=== PATIENT | male | born 1970 | race African-American/Black ===

== ENCOUNTER 2016-03-28 23:54 | Emergency (ER) | payer MEDICAID ==
[2016-03-29 00:13] VITALS: BP 160/117
[2016-03-29] MEDS ORDERED: ACETAMINOPHEN SOLN 325 MG/10.15 ML UDCUP PO ONE (00:28)
== END 2016-03-29 01:30 | disposition left against medical advice (07) ==
LOC: ER 23:54
DX: Z53.21 Procedure and treatment not carried out due to patient leaving prior to being seen by health care provider (principal)

== ENCOUNTER 2016-04-09 10:34 | Emergency (ER) | payer MEDICAID ==
[2016-04-09 11:01] VITALS: BP 166/113
--- NOTE | 2016-04-09 11:05 | ER Document Report ---
ED Medical Screen (RME) - General Stated Complaint: CHEST PAIN Time seen by provider: 11:01 Mode of Arrival: Ambulatory Information source: Patient Notes: 35-year-old male presents to ED for chest pain left lateral chest states "sometimes I can't breathe good "states pain does not radiate anywhere. States it hurts to breathe if he moves in the wrong direction. States she hasn't done any strenuous exercise recently he just woke up feeling this way. Denies any cardiac problems. Denies any family heart problems. Blood pressure elevated in RME but he states he has not had his blood pressure medicine this morning. States he does not remember what his blood pressure medicine this; states she started with red eye with drainage matted in the morning about 3 days ago states his eye itches. I have greeted and performed a rapid initial assessment of this patient. A comprehensive ED assessment and evaluation of the patient, analysis of test results and completion of medical decision making process will be conducted by an additional ED providers. TRAVEL OUTSIDE OF THE [place] IN LAST 30 DAYS: No - Related Data Allergies/Adverse Reactions: No Known Allergies Allergy (Verified 04/09/16 11:01) Past Medical History Renal/ Medical History: Denies: Hx Peritoneal Dialysis Physical Exam - Vital signs Vitals: Temp Pulse Resp BP Pulse Ox 98.1 F 62 16 166/113 H 96 04/09/16 11:00 04/09/16 11:00 04/09/16 11:00 04/09/16 11:00 04/09/16 11:00 Course - Vital Signs Vital signs: Temp Pulse Resp BP Pulse Ox 98.1 F 62 16 166/113 H 96 04/09/16 11:00 04/09/16 11:00 04/09/16 11:00 04/09/16 11:00 04/09/16 11:00
[2016-04-09] MEDS ORDERED: ASPIRIN 81 MG TABLET, CHEWABLE PO ONE (11:06)
[2016-04-09 11:38] LABS: ABSOLUTE EOSINOPHILS # (AUTO) 0.1 10^3/uL (0.0-0.6); ABSOLUTE LYMPHOCYTES (AUTO) 1.6 10^3/uL (0.5-4.7); ABSOLUTE MONOCYTES (AUTO) 0.5 10^3/uL (0.1-1.4); ABSOLUTE NEUT (AUTO) 1.2 10^3/uL (1.7-8.2); BASOPHILS % (AUTO) 0.6 % (0-2); EOSINOPHILS % (AUTO) 2.5 % (0-6); HEMATOCRIT 46.4 % (37.9-51.0); HEMOGLOBIN 15.8 g/dL (13.5-17.0); MEAN CORPUSCULAR HEMOGLOBIN 31.3 pg (27.0-33.4); MEAN CORPUSCULAR VOLUME 92 fl (80-97); MONOCYTES % (AUTO) 13.7 % (3-13); RED BLOOD COUNT 5.05 10^6/uL (4.35-5.55); RED CELL DISTRIBUTION WIDTH 13.5 % (11.5-14.0); SEGMENTED NEUTROPHILS % (AUTO) 35.2 % (42-78); WHITE BLOOD COUNT 3.3 10^3/uL (4.0-10.5)
[2016-04-09 11:40] LABS: PARTIAL THROMBOPLASTIN TIME 30.3 SEC (23.5-35.8)
[2016-04-09 11:58] LABS: ALANINE AMINOTRANSFERASE 37 U/L (21-72); ALBUMIN 4.6 g/dL (3.5-5.0); ALKALINE PHOSPHATASE 80 U/L (38-126); ANION GAP 7 (5-19); ASPARTATE AMINO TRANSFERASE 21 U/L (17-59); BILIRUBIN,TOTAL 0.9 mg/dL (0.2-1.3); BLOOD UREA NITROGEN 13 mg/dL (7-20); CARBON DIOXIDE 32 mmol/L (22-30); CHLORIDE 102 mmol/L (98-107); CREATINE KINASE 56 U/L (55-170); GLUCOSE 110 mg/dL (75-110); POTASSIUM 4.7 mmol/L (3.6-5.0); SODIUM 140.8 mmol/L (137-145); TOTAL PROTEIN 7.4 g/dL (6.3-8.2)
[2016-04-09 12:10] LABS: CREATINE KINASE MB 0.28 ng/mL (<4.55)
[2016-04-09 12:15] LABS: TROPONIN I < 0.012 ng/mL
--- NOTE | 2016-04-09 12:36 | ER Document Report ---
ED General - General Chief Complaint: Chest Pain > 30 Stated Complaint: CHEST PAIN Time seen by provider: 11:50 Mode of Arrival: Ambulatory Information source: Patient Notes: 45-year-old male states he woke up this morning with sharp pain just posterior and below the left axilla which is worse with movement or deep breathing. He doesn't recall any injury or exertion such as heavy lifting recently. He reports a prior history of symptoms like this. He reports no associated symptoms such as shortness breath, diaphoresis, nausea, or vomiting. He has no sensation of chest pressure or tightness. He reports the pain is nonradiating. He denies hematemesis, hematochezia, melena, abdominal pain, back pain, or dysuria. He denies pain numbness weakness to extremities. Patient also claims about a 3 day history of redness and yellow discharge from his left eye. He denies any trauma foreign body sensation or exposure to ultraviolet light. He reports there is no pain associated with this. Physical Exam: General: Alert, appears well. HEENT: Normocephalic. Atraumatic. PERRLA. Extraocular movements intact. Discs sharp no papilledema. Market conjunctival injection present in the left globe. There is no hyphema. Ocular pressures 20. No foreign body seen with lid eversion. Patient has mild soft tissue swelling to the upper and lower lids but no hordeolum is present. No abrasion identified with fluorescein staining. Oropharynx clear. Neck: Supple. Non-tender. No JVD Respiratory: No respiratory distress. Clear and equal breath sounds bilaterally. Tender to palpatio at the left midaxillary posterior axillary line over ribs 45 and 6 on the left. Palpation isolates in reproduces patient's pain. No lesions noted in this area. No crepitance or fluctuance is palpated Cardiovascular: Regular rate and rhythm. Abdominal: Normal Inspection. Soft, non-tender. No distension. Normal Bowel Sounds. Back: Non-tender. No deformity or step off. Extremities: Moves all four extremities. Upper extremities: Normal inspection. Non-tender. Normal color. Normal ROM. Normal temperature. Lower extremities: Normal inspection. Non-tender. No edema. Normal color. Normal ROM. Normal temperature. Neurological: Speech clear mentation normal program development specialist strength 5 out of 5 equal both upper extremities motor function 5 out of 5 equal both lower extremities Psychological: Normal affect. Normal Mood. Skin: Warm. Dry. Normal color. TRAVEL OUTSIDE OF THE [place] IN LAST 30 DAYS: No - Related Data Allergies/Adverse Reactions: No Known Allergies Allergy (Verified 04/09/16 11:01) Past Medical History - General Information source: Patient - Social History Smoking Status: Never Smoker Family History: Hypertension Patient has suicidal ideation: No Patient has homicidal ideation: No - Past Medical History Cardiac Medical History: Reports: Hx Hypertension Renal/ Medical History: Denies: Hx Peritoneal Dialysis Review of Systems - Review of Systems Constitutional: denies: Chills, Fever EENT: denies: Ear pain, Throat pain Cardiovascular: See HPI Respiratory: denies: Cough, Short of breath Gastrointestinal: denies: Abdominal pain, Diarrhea, Nausea, Vomiting Genitourinary: denies: Burning, Dysuria Musculoskeletal: See HPI. denies: Back pain Skin: denies: Rash Hematologic/Lymphatic: denies: Swollen glands Neurological/Psychological: denies: Weakness, Numbness Physical Exam - Vital signs Vitals: Temp Pulse Resp BP Pulse Ox 98.1 F 62 16 166/113 H 96 04/09/16 11:00 04/09/16 11:00 04/09/16 11:00 04/09/16 11:00 04/09/16 11:00 - HEENT Visual acuity- Right eye: 20/13 Visual acuity- Left eye: 20/15 Visual acuity- Both eyes: 20/25 Corrective lenses worn: No Course - Re-evaluation Re-evalutation: 04/09/16 12:37 #1 patient has examination left eye consistent with conjunctivitis and will be prescribed TobraDex eyedrops with ophthalmology follow-up Patient's chest pain is most consistent with pleuritic or chest wall discomfort. He has a heart score of 2 and will be prescribed a muscle relaxer and instructed use Tylenol or Motrin for pain. Follow with his physician at [facility] next week - Vital Signs Vital signs: Temp Pulse Resp BP Pulse Ox 98.1 F 62 16 166/113 H 96 04/09/16 11:00 04/09/16 11:00 04/09/16 11:00 04/09/16 11:00 04/09/16 11:00 - Laboratory Result Diagrams: 04/09/16 11:10 02/14/17 11:10 Laboratory results interpreted by me: 04/09/16 04/09/16 11:10 11:10 WBC 3.3 L Seg Neutrophils % 35.2 L Lymphocytes % 48.0 H Monocytes % 13.7 H Absolute Neutrophils 1.2 L Carbon Dioxide 32 H - Diagnostic Test Radiology reviewed: Image reviewed, Reports reviewed - EKG Interpretation by Me Additional EKG results interpreted by me: 04/09/16 12:36 EKG reviewed by myself, shows sinus rhythm at 60 no acute changes 04/09/16 13:16 Repeat EKG shows sinus rhythm at 63 again with no acute changes and no change from initial EKG Discharge - Discharge Clinical Impression: Conjunctivitis, left eye Qualifiers: Conjunctivitis type: acute Acute conjunctivitis type: unspecified Qualified Code(s): H10.32 - Unspecified acute conjunctivitis, left eye Chest pain Qualifiers: Chest pain type: other chest pain Qualified Code(s): R07.89 - Other chest pain ; R07.8 - Other chest pain Condition: Stable Disposition: HOME, SELF-CARE Additional Instructions: Chest Wall Pain Your chest pain has been diagnosed as coming from the chest wall. This is often caused by straining the muscles or joints in the chest during physical activity, direct trauma, coughing, or vigorous vomiting. Persons with arthritis are especially prone to this type of pain, due to inflammation of the cartilage joints near the breast bone. Occasionally, no cause can be found. Rest from strenuous physical activity. This kind of chest pain is usually made worse by movement of the chest. Depending on the symptoms, we may prescribe medicine for pain, muscle relaxation, and antiinflammatory effects. If the pain is new, and seems to be due to muscle strain, cold packs can help. Otherwise, apply gentle warmth to the painful area for 15 minutes every hour or two. You should contact the doctor immediately if things change. Further evaluation is needed if you develop a fever or cough, if the nature of the pain changes, or if you become short of breath.Conjunctivitis You have an infection in your eye, commonly known as "pink eye." Conjunctivitis causes redness, mild discomfort, itching, and mattering on the eyelids. It is very contagious, so you must be careful to wash your hands after touching your face so you don't pass the infection on to others. Conjunctivitis is caused by both viruses and bacteria. It usually responds quickly to treatment with antibiotic drops. These should be placed in the eye as prescribed (usually every three to four hours while you're awake). If you wear contact lenses, don't put them in your eyes until the infection is cleared and you are no longer using the drops (unless your doctor advises you otherwise). Should you develop increasing eye pain, severe swelling, decreased vision, or fail to improve as expected, please return for re-examination. Prescriptions: Cyclobenzaprine HCl [Flexeril 5 mg Tablet] 5 mg PO TID #15 tablet Tobramycin Sulf/Dexamethasone [Tobradex Eye Drops] 5 ml OS TID #1 drops.susp Referrals: SHARON MOJICA MD [ACTIVE STAFF] - Follow up in 3-5 days [facility] [Provider Group] - Follow up as needed
--- NOTE | 2016-04-09 23:53 | EKG REPORT ---
SEVERITY:- NORMAL ECG - SINUS RHYTHM : Confirmed by: Ludy Metzger 09-Apr-2016 23:53:07
--- NOTE | 2016-04-09 23:53 | EKG REPORT ---
SEVERITY:- NORMAL ECG - SINUS RHYTHM ST ELEV, PROBABLE NORMAL EARLY REPOL PATTERN : Confirmed by: Ludy Metzger 09-Apr-2016 23:53:00
== END 2016-04-09 13:52 | disposition home or self-care (01) ==
LOC: ER 10:34
DX: H10.32 Unspecified acute conjunctivitis, left eye (principal); R07.89 Other chest pain; I10 Essential (primary) hypertension
CPT/HCPCS: 36415; 71020; 80053; 82550; 82553; 83735; 84484; 85025; 85610; 85730; 93005; 93010; 99285